=== PATIENT | male | born 1960 | race Caucasian/White ===

== ENCOUNTER 2019-03-14 14:45 | Emergency (ER) | payer SELFPAY ==
[~2019-03-14] VITALS: Ht 167.4 cm; Wt 79.3 kg
[~2019-03-14 14:45] MED LIST: ACHD5005 PO; ALPR.5T; ASPI-84 PO; CEFD300C16; CPR500T PO; ESCI20TA2; ESCT10T; FAMO40TA6 PO; HYDR-34 PO; HYOS0.1216 PO; HYOS0.1283 SL; LORA1TAB; LORA1TAB PO; MECL-124 PO; NAPR-243 PO; ONDA4TAB8 PO; OXYC-12 PO; PHEN200T16 PO; SUCR1ORA5 PO; [UNRECOGNIZED DRUG - OTHER]
[2019-03-14] MEDS ORDERED: NS IV 1000 ML 1,000 ML IV SCH (15:30)
[2019-03-14] MEDS ORDERED: fentaNYL INJECTION 100 MCG/2 ML AMP IVP ONE (15:30)
[2019-03-14] MEDS ORDERED: ONDANSETRON 4 MG/2 ML (SDV) Z0FRAN IVP ONE (15:30)
[2019-03-14] MEDS ORDERED: KETOROLAC 30 MG/ML VIAL IVP ONE (15:30)
--- NOTE | 2019-03-14 15:31 | ED Back Pain ---
General Chief Complaint: Back Problems Stated Complaint: L SIDE KIDNEY PAIN/DIFF URINATING Nursing Triage Note: complaint of left back pain radiating to left abdomen. pt stats unable to sit sill, trouble voiding, hx of kidney stones,. Nursing Sepsis Screen: No Definite Risk Source of Information: Patient Exam Limitations: No Limitations History of Present Illness Date Seen by Provider: Mar 14, 2019 Time Seen by Provider: 15:15 Initial Comments To ER with left lower abdominal pain/left flank pain. Trouble urinating, history of kidney stones, unable to sit still. Has nausea as well. This reminds him of previous kidney stones. Timing/Duration: 4-6 Hours Severity: Moderate Associated Symptoms: denies symptoms Allergies and Home Medications Allergies Coded Allergies: erythromycin base (Unverified Allergy, Mild, ABD PAIN, 08/26/08) ceftriaxone (Verified Allergy, Unknown, 10/26/14) Home Medications Hydrocodone Bit/Acetaminophen 1 Ea Tablet, 2 EA PO Q6H PRN for PAIN, (Reported) Hyoscyamine Sulfate 0.125 Mg Tab.subl, 1-2 TAB SL Q4H Prescribed by: OFE QUACH on 10/27/14129 Lorazepam 1 Mg Tablet, 1 MG PO HS, (Reported) Ondansetron 4 Mg Tab.rapdis, 4 MG PO Q4H Prescribed by: OFE QUACH on 10/27/14129 Sucralfate 1 Gm/10 Ml Oral.susp, 1 GM PO QID AC AND HS Prescribed by: OFE QUACH on 10/27/14129 Patient Home Medication List Home Medication List Reviewed: Yes Review of Systems Constitutional: see HPI EENTM: see HPI Respiratory: no symptoms reported Cardiovascular: no symptoms reported Genitourinary: no symptoms reported Musculoskeletal: no symptoms reported Skin: no symptoms reported Psychiatric/Neurological: No Symptoms Reported Past Gcfdmlr-[id number]-Ntnrsj Hx Patient Social History Recent Foreign Travel: No Contact w/Someone Who Travel: No Recent Infectious Disease Expo: No Physical Abuse: No Sexual Abuse: No Mistreated: No Immunizations Up To Date Tetanus Booster (TDap): Unknown Date of Pneumonia Vaccine: Feb 18, 2008 Date of Influenza Vaccine: Dec 18, 2013 Past Medical History Surgeries: Yes (URETERAL STONE REMOVAL) Gallbladder Respiratory: No Cardiac: No Neurological: Yes Seizure Disorder Reproductive Disorders: No Sexually Transmitted Disease: No HIV/AIDS: No Gastrointestinal: Yes (PANCREATITIS IN THE PAST, CONSTIPATION) Gall Bladder Disease Musculoskeletal: No Endocrine: Yes Diabetes, Non-Insulin dep Loss of Vision: Denies Hearing Impairment: Denies Cancer: No Psychosocial: Yes Anxiety Integumentary: No Blood Disorders: Yes (POLYCYTHEMIA) Physical Exam Vital Signs Vital Signs - First Documented 03/14/19 15:10 Temp 36.2 Pulse 97 Resp 18 B/P (MAP) 156/82 (106) Pulse Ox 94 O2 Delivery Nasal Cannula Capillary Refill : Less Than 3 Seconds Height, Weight, BMI Height: 5'8" Weight: 170lbs. oz. 77.757927is; 28.00 BMI Method:Stated General Appearance: No Apparent Distress, WD/WN Respiratory: No Accessory Muscle Use, No Respiratory Distress Gastrointestinal: Normal Bowel Sounds, Soft, Tenderness Extremity: Normal Capillary Refill, Normal Inspection Neurologic/Psychiatric: Alert, Oriented x3 Skin: Normal Color, Warm/Dry Progress/Results/Core Measures Results/Orders Lab Results Laboratory Tests Test 03/14/19 15:15 03/14/19 15:28 Range/Units White Blood Count 12.7 H 4.3-11.0 10^3/uL Red Blood Count 5.54 4.35-5.85 10^6/uL Hemoglobin 17.2 13.3-17.7 G/DL Hematocrit 50 40-54 % Mean Corpuscular Volume 91 80-99 FL Mean Corpuscular Hemoglobin 31 25-34 PG Mean Corpuscular Hemoglobin Concent 34 32-36 G/DL Red Cell Distribution Width 13.5 10.0-14.5 % Platelet Count 279 130-400 10^3/uL Mean Platelet Volume 9.9 7.4-10.4 FL Neutrophils (%) (Auto) 68 42-75 % Lymphocytes (%) (Auto) 20 12-44 % Monocytes (%) (Auto) 10 0-12 % Eosinophils (%) (Auto) 1 0-10 % Basophils (%) (Auto) 1 0-10 % Neutrophils # (Auto) 8.7 H 1.8-7.8 X 10^3 Lymphocytes # (Auto) 2.5 1.0-4.0 X 10^3 Monocytes # (Auto) 1.3 H 0.0-1.0 X 10^3 Eosinophils # (Auto) 0.2 0.0-0.3 10^3/uL Basophils # (Auto) 0.1 0.0-0.1 10^3/uL Sodium Level 139 135-145 MMOL/L Potassium Level 4.7 3.6-5.0 MMOL/L Chloride Level 107 98-107 MMOL/L Carbon Dioxide Level 20 L 21-32 MMOL/L Anion Gap 12 5-14 MMOL/L Blood Urea Nitrogen 14 7-18 MG/DL Creatinine 1.31 H 0.60-1.30 MG/DL Estimat Glomerular Filtration Rate 57 BUN/Creatinine Ratio 11 Glucose Level 103 70-105 MG/DL Calcium Level 10.4 H 8.5-10.1 MG/DL Corrected Calcium 10.0 8.5-10.1 MG/DL Total Bilirubin 0.5 0.1-1.0 MG/DL Aspartate Amino Transf (AST/SGOT) 19 5-34 U/L Alanine Aminotransferase (ALT/SGPT) 29 0-55 U/L Alkaline Phosphatase 117 40-136 U/L Total Protein 7.1 6.4-8.2 GM/DL Albumin 4.5 3.2-4.5 GM/DL Urine Color YELLOW Urine Clarity SL CLOUDY Urine pH 5.5 5-9 Urine Specific [place] 1.025 H 1.016-1.022 Urine Protein NEGATIVE NEGATIVE Urine Glucose (UA) NEGATIVE NEGATIVE Urine Ketones NEGATIVE NEGATIVE Urine Nitrite NEGATIVE NEGATIVE Urine Bilirubin NEGATIVE NEGATIVE Urine Urobilinogen 0.2 < = 1.0 MG/DL Urine Leukocyte Esterase NEGATIVE NEGATIVE Urine RBC (Auto) 2+ H NEGATIVE Urine RBC 10-25 H /HPF Urine WBC NONE /HPF Urine Squamous Epithelial Cells NONE /HPF Urine Crystals NONE /LPF Urine Amorphous Sediment MOD CUATE URATES H /LPF Urine Bacteria NEGATIVE /HPF Urine Casts NONE /LPF Urine Mucus NEGATIVE /LPF Urine Culture Indicated NO My Orders Orders - QAMAR MARK ADMISSIONS EVALUATOR Cbc With Automated Diff (03/14/19 15:28) Comprehensive Metabolic Panel (03/14/19 15:28) Ua Culture If Indicated (03/14/19 15:28) Ed Iv/Invasive Line Start (03/14/19 15:28) Ct Abd/Pelvis Wo(Kidney Stone) (03/14/19 15:28) Ketorolac Injection (Toradol Injection) (03/14/19 15:30) Ns Iv 1000 Ml (Sodium Chloride 0.9%) (03/14/19 15:30) Fentanyl Injection (Sublimaze Injection (03/14/19 15:30) Ondansetron Injection (Zofran Injectio (03/14/19 15:30) Medications Given in ED Current Medications Medications Dose Ordered Sig/Maureen Route Start Time Stop Time Status Last Admin Dose Admin Fentanyl Citrate 50 mcg ONCE ONCE IVP 03/14/19 15:30 03/14/19 15:31 DC 03/14/19 15:45 50 MCG Ketorolac Tromethamine 15 mg ONCE ONCE IVP 03/14/19 15:30 03/14/19 15:31 DC 03/14/19 15:45 15 MG Ondansetron HCl 4 mg ONCE ONCE IVP 03/14/19 15:30 03/14/19 15:31 DC 03/14/19 15:44 4 MG Vital Signs/I&O 03/14/19 15:10 Temp 36.2 Pulse 97 Resp 18 B/P (MAP) 156/82 (106) Pulse Ox 94 O2 Delivery Nasal Cannula Blood Pressure Mean: 106 Diagnostic Imaging Diagonstic Imaging: CT Comments NAME: [facility] REC#: [id number] PT STATUS: REG ER : 1960 PHYSICIAN: QAMAR MARK APRN ADMIT DATE: 03/14/19/ER Draft Date of Exam:03/14/19 CT ABD/PELVIS WO(KIDNEY STONE) PROCEDURE: CT urinary tract, rule out kidney stone. TECHNIQUE: Multiple contiguous axial images were obtained through the abdomen and pelvis without the use of intravenous contrast. Auto Exposure Controls were utilized during the CT exam to meet ALARA standards for radiation dose reduction. INDICATION: Left flank pain. FINDINGS: The previous CT abdomen/pelvis exam of 10/27/2014 failed to show any sign of an acute abnormality of the abdomen or pelvis. On this exam however there is now partial obstruction of the left collecting system due to a 3.4 mm calculus in the distal left ureter near the ureterovesical junction. There is mild dilatation of the ureter and the left renal pelvis and there is some perinephric stranding about the left kidney. There is a 2 mm nonobstructive calculus in the inferior pole of the right kidney. The right kidney does not appear to be obstructed. There is no acute abnormality of the abdomen and pelvis noted otherwise. There is diverticulosis of the sigmoid and descending colon but there is no sign of acute diverticulitis. The appendix was visualized and is not abnormally thickened. There is no pelvic mass or free fluid collection evident. The urinary bladder and prostate gland are grossly unremarkable. The liver, spleen, pancreas, adrenals, aorta and inferior vena cava show no sign of an acute abnormality. The gallbladder is surgically absent. The stomach is partially filled with particulate matter and consequently difficult to assess. The lung bases are clear. The bone windows show no sign of a fracture or of a destructive lesion. IMPRESSION: 1. There is partial obstruction of the left collecting system due to a 3.6 mm calculus in the left ureter near the ureterovesical junction. There is also a minute nonobstructive calculus within the right kidney. 2. There is no acute abnormality of the abdomen and pelvis noted otherwise. Dictated on workstation # [id number] Dict: 03/14/19 1620 Trans: 03/14/[address] [facility] [id number] Interpreted by: PETE ACEVEDO MD Electronically signed by: Departure Impression Primary Impression: Left ureteral stone Disposition: HOME, SELF-CARE Condition: Improved Departure-Patient Inst. Decision time for Depature: 16:34 Referrals: EUGENE BECKETT MD (PCP/Family) Primary Care Physician Patient Instructions: Kidney Stones (DC) Add. Discharge Instructions: 1. Follow-up with your regular doctor next week 2. Pain medication and nausea medication as needed. All discharge instructions reviewed with patient and/or family. Voiced understanding. Scripts Sulfamethoxazole/Trimethoprim (Bactrim Ds Tablet) 1 Each Tablet 1 EACH PO BID, #10 TAB Prov: QAMAR MARK APRN 03/14/19 Ondansetron (Ondansetron Odt) 4 Mg Tab.rapdis 4 MG PO Q4H PRN for NAUSEA/VOMITING, #10 TAB Prov: QAMAR MARK APRN 03/14/19 Hydrocodone Bit/Acetaminophen (Hydrocodone/Acetaminophen 5/325mg Tablet) 1 Tab Tab 1-2 EACH PO Q6H PRN for PAIN-MODERATE MDD 10 for 3 Days, #30 TAB 0 Refills Prov: QAMAR MARK APRN 03/14/19 QAMAR MARK APRN Mar 14, 2019 15:31
[2019-03-14 15:34] LABS: BASOPHILS # (AUTO) 0.1 10^3/uL (0.0-0.1); BASOPHILS % (AUTO) 1 % (0-10); EOSINOPHILS # (AUTO) 0.2 10^3/uL (0.0-0.3); EOSINOPHILS % (AUTO) 1 % (0-10); HEMATOCRIT 50 % (40-54); HEMOGLOBIN 17.2 G/DL (13.3-17.7); LYMPHOCYTES # (AUTO) 2.5 X 10^3 (1.0-4.0); LYMPHOCYTES % (AUTO) 20 % (12-44); MEAN CORPUSCULAR HEMOGLOBIN 31 PG (25-34); MEAN CORPUSCULAR HGB CONC 34 G/DL (32-36); MEAN CORPUSCULAR VOLUME 91 FL (80-99); MEAN PLATELET VOLUME 9.9 FL (7.4-10.4); MONOCYTES # (AUTO) 1.3 X 10^3 (0.0-1.0); MONOCYTES % (AUTO) 10 % (0-12); NEUTROPHILS # (AUTO) 8.7 X 10^3 (1.8-7.8); NEUTROPHILS % (AUTO) 68 % (42-75); PLATELET COUNT 279 10^3/uL (130-400); RED CELL DISTRIBUTION WIDTH 13.5 % (10.0-14.5); WHITE BLOOD COUNT 12.7 10^3/uL (4.3-11.0)
[2019-03-14 15:35] LABS: BILIRUBIN,URINE NEGATIVE (NEGATIVE); CLARITY,URINE SL CLOUDY; COLOR,URINE YELLOW; GLUCOSE, URINE (UA) NEGATIVE (NEGATIVE); KETONES,URINE NEGATIVE (NEGATIVE); LEUKOCYTE ESTERASE ,URINE NEGATIVE (NEGATIVE); NITRITE,URINE NEGATIVE (NEGATIVE); PH,URINE 5.5 (5-9); PROTEIN,URINE NEGATIVE (NEGATIVE)
[2019-03-14 15:45] LABS: ALBUMIN 4.5 GM/DL (3.2-4.5); BILIRUBIN,TOTAL 0.5 MG/DL (0.1-1.0); CALCIUM 10.4 MG/DL (8.5-10.1); CREATININE SERUM 1.31 MG/DL (0.60-1.30); POTASSIUM 4.7 MMOL/L (3.6-5.0); TOTAL PROTEIN 7.1 GM/DL (6.4-8.2)
[2019-03-14 15:54] LABS: AMORPHOUS SEDIMENT,UR MOD AMOR URATES /LPF; BACTERIA,URINE NEGATIVE /HPF
--- NOTE | 2019-03-14 16:29 | Diagnostic Imaging Report ---
PROCEDURE: CT urinary tract, rule out kidney stone. TECHNIQUE: Multiple contiguous axial images were obtained through the abdomen and pelvis without the use of intravenous contrast. Auto Exposure Controls were utilized during the CT exam to meet ALARA standards for radiation dose reduction. INDICATION: Left flank pain. FINDINGS: The previous CT abdomen/pelvis exam of 10/27/2014 failed to show any sign of an acute abnormality of the abdomen or pelvis. On this exam however there is now partial obstruction of the left collecting system due to a 3.4 mm calculus in the distal left ureter near the ureterovesical junction. There is mild dilatation of the ureter and the left renal pelvis and there is some perinephric stranding about the left kidney. There is a 2 mm nonobstructive calculus in the inferior pole of the right kidney. The right kidney does not appear to be obstructed. There is no acute abnormality of the abdomen and pelvis noted otherwise. There is diverticulosis of the sigmoid and descending colon but there is no sign of acute diverticulitis. The appendix was visualized and is not abnormally thickened. There is no pelvic mass or free fluid collection evident. The urinary bladder and prostate gland are grossly unremarkable. The liver, spleen, pancreas, adrenals, aorta and inferior vena cava show no sign of an acute abnormality. The gallbladder is surgically absent. The stomach is partially filled with particulate matter and consequently difficult to assess. The lung bases are clear. The bone windows show no sign of a fracture or of a destructive lesion. IMPRESSION: 1. There is partial obstruction of the left collecting system due to a 3.6 mm calculus in the left ureter near the ureterovesical junction. There is also a minute nonobstructive calculus within the right kidney. 2. There is no acute abnormality of the abdomen and pelvis noted otherwise. Dictated by: Dictated on workstation # [id number]
[2019-03-14] MEDS ORDERED: ONDA4TAB11 PO (16:37)
[2019-03-14] MEDS ORDERED: SULF1TAB35 PO (16:37)
[2019-03-14] MEDS ORDERED: ACHD5005 PO (16:37)
[2019-03-14] MEDS ORDERED: HYDROcodone/APAP 5 MG/325 MG (LORTAB) TAB PO ONE (16:45)
[2019-03-14 16:53] VITALS: BP 148/80
== END 2019-03-14 16:53 | disposition home or self-care (01) ==
LOC: EDUNIT# 14:45 → ER 14:46
DX: N20.1 Calculus of ureter (principal); G40.909 Epilepsy, unspecified, not intractable, without status epilepticus; E11.9 Type 2 diabetes mellitus without complications; F41.9 Anxiety disorder, unspecified; Z88.1 Allergy status to other antibiotic agents
CPT/HCPCS: 36415; 74176; 80053; 81000; 85025

== ENCOUNTER 2019-03-16 13:32 | Emergency (ER) | payer SELFPAY ==
[~2019-03-16] VITALS: Ht 157.4 cm; Wt 77.2 kg
[~2019-03-16 13:32] MED LIST changes: +ONDA4TAB11 PO; +SULF1TAB35 PO
[2019-03-16] MEDS ORDERED: LACTATED RINGERS 1,000 ML IV ONE ×2 (13:41→15:19)
[2019-03-16] MEDS ORDERED: KETOROLAC 30 MG/ML VIAL IVP STA (13:41)
[2019-03-16] MEDS ORDERED: fentaNYL INJECTION 100 MCG/2 ML AMP IVP STA (13:41)
[2019-03-16 13:57] LABS: BASOPHILS % (AUTO) 0 % (0-10); EOSINOPHILS # (AUTO) 0.1 10^3/uL (0.0-0.3); EOSINOPHILS % (AUTO) 1 % (0-10); HEMATOCRIT 44 % (40-54); HEMOGLOBIN 15.1 G/DL (13.3-17.7); LYMPHOCYTES # (AUTO) 1.2 X 10^3 (1.0-4.0); LYMPHOCYTES % (AUTO) 8 % (12-44); MEAN CORPUSCULAR HEMOGLOBIN 31 PG (25-34); MEAN CORPUSCULAR HGB CONC 34 G/DL (32-36); MEAN CORPUSCULAR VOLUME 91 FL (80-99); MONOCYTES # (AUTO) 1.7 X 10^3 (0.0-1.0); MONOCYTES % (AUTO) 11 % (0-12); NEUTROPHILS # (AUTO) 12.4 X 10^3 (1.8-7.8); NEUTROPHILS % (AUTO) 81 % (42-75); PLATELET COUNT 205 10^3/uL (130-400); RED CELL DISTRIBUTION WIDTH 13.3 % (10.0-14.5); WHITE BLOOD COUNT 15.4 10^3/uL (4.3-11.0)
--- NOTE | 2019-03-16 14:15 | NUR ---
This nurse noticed pt shaking and appearing very anxious. This nurse asked pt if pt has anxiety. Pt reported taking ativan for seizure disorder, but stopped taking med cold turkey on Friday. Pt also reports severe headache, and insomnia. Dr. Weiss notified.
[2019-03-16 14:22] LABS: BAND NEUTROPHILS 2 %; BASOPHILS % (MANUAL) 0 %; EOSINOPHILS % (MANUAL) 0 %; LYMPHOCYTES % (MANUAL) 8 %; MONOCYTES % (MANUAL) 11 %; NEUTROPHILS % (MANUAL) 79 %
--- NOTE | 2019-03-16 14:22 | ED GU-Male ---
General Chief Complaint: Abdominal/GI Problems Stated Complaint: DX W/KIDNEY STONE,NOT GETTING BETTER Nursing Triage Note: AMB TO ED REPORTS THAT WAS SEEN IN ED ON FRIDAY DX WITH KIDNEY STONEY. PAIN ON L SIDE HAS PMH OF HAVING KIDNEY STONES. PAIN WORSE Source: patient Exam Limitations: no limitations History of Present Illness Date Seen by Provider: Mar 16, 2019 Time Seen by Provider: 13:43 Initial Comments Here with report of increasing pain since Friday. He had had pain for 2 days at that point and was found on Friday to have the left ureteral stone at the UVJ. He has been taking a hydrocodone but that's cause some constipation. He did take ibuprofen but only took 200 mg today because he was worried about a heart condition as listed on the bottle. He has not taken any hydrocodone today because he woke up in significant pain and he knew he was going to go to the emergency department. Reports that he shaking and his belly hurts on the left side but is different than a kidney stone pain. Has a history of constipation. He did take 2 Dulcolax a few hours ago and the pain worsened. Later, patient revealed that he abruptly stopped taking his lorazepam on Friday when the pharmacist told him that there could be mixed problems with the hydrocodone in it. Stop his heart. He has been taking that for 18 years. He started shaking today and did not realize that there could be withdrawal with abruptly stopping. Also states that his anxiety is much worse and he has been more tense. Timing/Duration: getting worse Severity/Quality: moderate, severe, aching, sharp Location: LLQ, left flank Radiation: none Activities at Onset: none Modifying Factors: Improves With Other (no aggravating or relieving factors) Associated Symptoms: abdominal pain; No dysuria, No fever/chills, No nausea/vomiting, No urinary frequency Allergies and Home Medications Allergies Coded Allergies: erythromycin base (Unverified Allergy, Mild, ABD PAIN, 08/26/08) ceftriaxone (Verified Allergy, Unknown, 10/26/14) Home Medications Hydrocodone Bit/Acetaminophen 1 Ea Tablet, 2 EA PO Q6H PRN for PAIN, (Reported) Hydrocodone Bit/Acetaminophen 1 Tab Tab, 1-2 EACH PO Q6H PRN for PAIN-MODERATE Prescribed by: QAMAR MARK on 03/14/19 9204 Hyoscyamine Sulfate 0.125 Mg Tab.subl, 1-2 TAB SL Q4H Prescribed by: OFE QUACH on 10/27/14129 Lorazepam 1 Mg Tablet, 1 MG PO HS, (Reported) Ondansetron 4 Mg Tab.rapdis, 4 MG PO Q4H Prescribed by: OFE QUACH on 10/27/14129 Ondansetron 4 Mg Tab.rapdis, 4 MG PO Q4H PRN for NAUSEA/VOMITING Prescribed by: QAMAR MARK on 03/14/19 163 Sucralfate 1 Gm/10 Ml Oral.susp, 1 GM PO QID AC AND HS Prescribed by: OFE QUACH on 10/27/14129 Sulfamethoxazole/Trimethoprim 1 Each Tablet, 1 EACH PO BID Prescribed by: QAMAR MARK on 03/14/191636 Patient Home Medication List Home Medication List Reviewed: Yes Review of Systems Review of Systems Constitutional: see HPI; No chills, No fever EENTM: no symptoms reported Respiratory: no symptoms reported Cardiovascular: no symptoms reported Gastrointestinal: abdominal pain; No diarrhea; vomiting Genitourinary: flank pain, pain Musculoskeletal: no symptoms reported Skin: no symptoms reported Psychiatric/Neurological: See HPI, Anxiety; Denies Weakness Endocrine: No Symptoms Reported All Other Systemes Reviewed Negative Unless Noted: Yes Past Eyuivgk-Lnkdmm-Njgrpf Hx Past Med/Social Hx: Reviewed Nursing Past Med/Soc Hx Patient Social History Alcohol Use: Denies Use Recreational Drug Use: Yes (SMOKES 1 / PPD) Smoking Status: Current Everyday Smoker Recent Foreign Travel: No Contact w/Someone Who Travel: No Recent Infectious Disease Expo: No Immunizations Up To Date Tetanus Booster (TDap): Unknown Date of Pneumonia Vaccine: Feb 18, 2008 Date of Influenza Vaccine: Dec 18, 2013 Past Medical History Surgeries: Yes (URETERAL STONE REMOVAL) Gallbladder Respiratory: No Cardiac: No Neurological: Yes Seizure Disorder Reproductive Disorders: No Sexually Transmitted Disease: No HIV/AIDS: No Gastrointestinal: Yes (PANCREATITIS IN THE PAST, CONSTIPATION) Gall Bladder Disease Musculoskeletal: No Endocrine: Yes Diabetes, Non-Insulin dep Loss of Vision: Denies Hearing Impairment: Denies Cancer: No Psychosocial: Yes Anxiety Integumentary: No Blood Disorders: Yes (POLYCYTHEMIA) Family Medical History Reviewed Nursing Family Hx Physical Exam Vital Signs Vital Signs - First Documented 03/16/19 13:34 Temp 36.6 Pulse 98 Resp 18 B/P (MAP) 152/82 (105) Pulse Ox 97 O2 Delivery Room Air Capillary Refill : Less Than 3 Seconds Height, Weight, BMI Height: 5'8" Weight: 170lbs. oz. 77.876206gj; 31.00 BMI Method:Stated General Appearance: WD/WN, no apparent distress HEENT: PERRL/EOMI, pharynx normal Neck: full range of motion, supple Cardiovascular: regular rate, rhythm, no murmur Respiratory: lungs clear, normal breath sounds Gastrointestinal: soft, tenderness (left flank area) Back: normal inspection, no CVA tenderness, no vertebral tenderness Extremities: non-tender, normal inspection Neurologic/Psychiatric: alert, oriented x 3 Skin: normal color, warm/dry Progress/Results/Core Measures Suspected Sepsis Recent Fever Within 48 Hours: No Infection Criteria Present: None New/Unexplained Altered Menta: No Sepsis Screen: No Definite Risk SIRS Temperature: Pulse: 98 Respiratory Rate: 18 Laboratory Tests 03/16/19 13:45: White Blood Count 15.4H Blood Pressure 152 /82 Mean: 105 Laboratory Tests 03/16/19 13:45: Creatinine 2.00H, Platelet Count 205, Total Bilirubin 1.0 Results/Orders Lab Results Laboratory Tests Test 03/16/19 13:45 03/16/19 14:46 Range/Units White Blood Count 15.4 H 4.3-11.0 10^3/uL Red Blood Count 4.86 4.35-5.85 10^6/uL Hemoglobin 15.1 13.3-17.7 G/DL Hematocrit 44 40-54 % Mean Corpuscular Volume 91 80-99 FL Mean Corpuscular Hemoglobin 31 25-34 PG Mean Corpuscular Hemoglobin Concent 34 32-36 G/DL Red Cell Distribution Width 13.3 10.0-14.5 % Platelet Count 205 130-400 10^3/uL Mean Platelet Volume 10.0 7.4-10.4 FL Neutrophils (%) (Auto) 81 H 42-75 % Lymphocytes (%) (Auto) 8 L 12-44 % Monocytes (%) (Auto) 11 0-12 % Eosinophils (%) (Auto) 1 0-10 % Basophils (%) (Auto) 0 0-10 % Neutrophils # (Auto) 12.4 H 1.8-7.8 X 10^3 Lymphocytes # (Auto) 1.2 1.0-4.0 X 10^3 Monocytes # (Auto) 1.7 H 0.0-1.0 X 10^3 Eosinophils # (Auto) 0.1 0.0-0.3 10^3/uL Basophils # (Auto) 0.0 0.0-0.1 10^3/uL Neutrophils % (Manual) 79 % Lymphocytes % (Manual) 8 % Monocytes % (Manual) 11 % Eosinophils % (Manual) 0 % Basophils % (Manual) 0 % Band Neutrophils 2 % Blood Morphology Comment NORMAL Sodium Level 135 135-145 MMOL/L Potassium Level 4.6 3.6-5.0 MMOL/L Chloride Level 107 98-107 MMOL/L Carbon Dioxide Level 17 L 21-32 MMOL/L Anion Gap 11 5-14 MMOL/L Blood Urea Nitrogen 19 H 7-18 MG/DL Creatinine 2.00 H 0.60-1.30 MG/DL Estimat Glomerular Filtration Rate 35 BUN/Creatinine Ratio 10 Glucose Level 116 H 70-105 MG/DL Calcium Level 9.1 8.5-10.1 MG/DL Corrected Calcium 8.9 8.5-10.1 MG/DL Total Bilirubin 1.0 0.1-1.0 MG/DL Aspartate Amino Transf (AST/SGOT) 33 5-34 U/L Alanine Aminotransferase (ALT/SGPT) 40 0-55 U/L Alkaline Phosphatase 109 40-136 U/L C-Reactive Protein High Sensitivity 12.13 H 0.00-0.50 MG/DL Total Protein 7.0 6.4-8.2 GM/DL Albumin 4.2 3.2-4.5 GM/DL Urine Color YELLOW Urine Clarity CLEAR Urine pH 5.5 5-9 Urine Specific [place] 1.025 H 1.016-1.022 Urine Protein NEGATIVE NEGATIVE Urine Glucose (UA) NEGATIVE NEGATIVE Urine Ketones TRACE H NEGATIVE Urine Nitrite NEGATIVE NEGATIVE Urine Bilirubin NEGATIVE NEGATIVE Urine Urobilinogen 0.2 < = 1.0 MG/DL Urine Leukocyte Esterase NEGATIVE NEGATIVE Urine RBC (Auto) 3+ H NEGATIVE Urine RBC 2-5 H /HPF Urine WBC NONE /HPF Urine Crystals NONE /LPF Urine Bacteria NEGATIVE /HPF Urine Casts NONE /LPF Urine Mucus NEGATIVE /LPF Urine Culture Indicated NO My Orders Orders - SAMANTHA QUACH MD Cbc With Automated Diff (03/16/19 13:41) Comprehensive Metabolic Panel (03/16/19 13:41) Hs C Reactive Protein (03/16/19 13:41) Ua Culture If Indicated (03/16/19 13:41) Ed Iv/Invasive Line Start (03/16/19 13:41) Lactated Ringers (Lr 1000 Ml Iv Solution (03/16/19 13:41) Abdomen/Kub 1view (03/16/19 13:41) Fentanyl Injection (Sublimaze Injection (03/16/19 13:41) Ketorolac Injection (Toradol Injection) (03/16/19 13:41) Manual Differential (03/16/19 13:45) Lorazepam Injection (Ativan Injection) (03/16/19 14:30) Ed Iv/Invasive Line Start (03/16/19 15:19) Lactated Ringers (Lr 1000 Ml Iv Solution (03/16/19 15:19) Medications Given in ED Current Medications Medications Dose Ordered Sig/Maureen Route Start Time Stop Time Status Last Admin Dose Admin Lactated Ringer's 1,000 ml @ 0 mls/hr Q0M ONCE IV 03/16/19 13:41 03/16/19 13:44 DC 03/16/19 14:10 1,000 MLS/HR Lactated Ringer's 1,000 ml @ 0 mls/hr Q0M ONCE IV 03/16/19 15:19 03/16/19 15:20 DC 03/16/19 15:44 1,000 MLS/HR Lorazepam 0.5 mg ONCE ONCE IVP 03/16/19 14:30 03/16/19 14:31 DC 03/16/19 14:24 0.5 MG Vital Signs/I&O 03/16/19 13:34 Temp 36.6 Pulse 98 Resp 18 B/P (MAP) 152/82 (105) Pulse Ox 97 O2 Delivery Room Air Capillary Refill : Less Than 3 Seconds Blood Pressure Mean: 105 Progress Note : Progress Note Seen and evaluated. IV, labs, UA, KUB, LR 1 L bolus, fentanyl 75 g IV and Toradol 30 mg IV ordered. Labs finding out about the abrupt stopping of lo razepam, Ativan 0.5 mg IV ordered. Monitor patient. 1520: Overall feeling much better. Creatinine is elevated today. He does admit that he was nauseated and did not drink well yesterday although has drink better today. I do believe he is dehydrated and we will give another liter of LR. We did discuss at length therapy at home and he would like to try this at home to see if he can get better. I think this is a reasonable approach as long as he can tolerate by mouth fluids. He believes he can. Monitor patient. 1622: Overall much better. Discharged home with return precautions. Patient verbalize understanding instructions and agreement with plan. Diagnostic Imaging Diagonstic Imaging: Xray Plain Films/CT/US/NM/MRI: abdomen Comments [facility]. [place], [place] NAME: [facility] REC#: [id number] PT STATUS: REG ER : 1960 PHYSICIAN: SAMANTHA QUACH MD ADMIT DATE: 03/16/19/ER Draft Date of Exam:03/16/19 ABDOMEN/KUB 1VIEW EXAMINATION: Supine abdomen at 2:39 p.m. INDICATION: Nephrolithiasis. FINDINGS: The recent CT abdomen/pelvis exam of 03/14/2019 noted partial obstruction of the left collecting system due to a 3.6 mm calculus at the ureterovesical junction on the left. On this exam, that calculus is again evident and does not appear to have changed significantly in position. The minute nonobstructive calculus within the inferior pole of the right kidney seen on the previous exam is not well visualized. No other pathological calcification is evident. There do appear to be ingested medication tablets overlying the right upper quadrant. IMPRESSION: The obstructive calculus involving the distal left ureter seen on the recent CT abdomen/pelvis exam is again evident and seems similar in position. Dictated on workstation # [id number] Dict: 03/16/19 1441 Trans: 03/16/19 1448 [id number] Interpreted by: PETE ACEVEDO MD Electronically signed by: Departure Impression Primary Impression: Left ureteral stone Additional Impressions: Dehydration Benzodiazepine withdrawal Qualified Codes: F13.230 - Sedative, hypnotic or anxiolytic dependence with withdrawal, uncomplicated Renal insufficiency, mild Disposition: HOME, SELF-CARE Condition: Improved Departure-Patient Inst. Decision time for Depature: 15:22 Referrals: EUGENE BECKETT MD (PCP/Family) Primary Care Physician Patient Instructions: Dehydration, Adult (DC), Kidney Stones (DC) Add. Discharge Instructions: All discharge instructions reviewed with patient and/or family. Voiced understanding. You may continue your lorazepam daily. You may take MiraLAX or the generic one half to one capful twice daily to keep stools soft. You may increase or decrease the dose as needed. You may take ibuprofen 400-600 mg every 8 hours as needed for pain. You may take the pain medicines as directed. Ensure that you're drinking plenty of fluids. Return for worse pain, persistent nausea or vomiting, not able to drink fluids, weakness or other concerns as needed. SAMANTHA QUACH MD Mar 16, 2019 14:22
[2019-03-16 14:23] LABS: ALBUMIN 4.2 GM/DL (3.2-4.5); CALCIUM 9.1 MG/DL (8.5-10.1); POTASSIUM 4.6 MMOL/L (3.6-5.0); RBC MORPH NORMAL
[2019-03-16] MEDS ORDERED: LORazepam INJ 2 MG/ML (ATIVAN) VIAL IVP ONE (14:30)
--- NOTE | 2019-03-16 14:49 | Diagnostic Imaging Report ---
EXAMINATION: Supine abdomen at 2:39 p.m. INDICATION: Nephrolithiasis. FINDINGS: The recent CT abdomen/pelvis exam of 03/14/2019 noted partial obstruction of the left collecting system due to a 3.6 mm calculus at the ureterovesical junction on the left. On this exam, that calculus is again evident and does not appear to have changed significantly in position. The minute nonobstructive calculus within the inferior pole of the right kidney seen on the previous exam is not well visualized. No other pathological calcification is evident. There do appear to be ingested medication tablets overlying the right upper quadrant. IMPRESSION: The obstructive calculus involving the distal left ureter seen on the recent CT abdomen/pelvis exam is again evident and seems similar in position. Dictated by: Dictated on workstation # [id number]
[2019-03-16 14:53] LABS: BILIRUBIN,URINE NEGATIVE (NEGATIVE); CLARITY,URINE CLEAR; COLOR,URINE YELLOW; GLUCOSE, URINE (UA) NEGATIVE (NEGATIVE); KETONES,URINE TRACE (NEGATIVE); LEUKOCYTE ESTERASE ,URINE NEGATIVE (NEGATIVE); NITRITE,URINE NEGATIVE (NEGATIVE); PH,URINE 5.5 (5-9); PROTEIN,URINE NEGATIVE (NEGATIVE)
[2019-03-16 14:59] LABS: BACTERIA,URINE NEGATIVE /HPF
--- NOTE | 2019-03-16 15:03 | NUR ---
Pt appears much calmer at this time,and reports feeling much better. Dr. Weiss notified.
[2019-03-16 16:37] VITALS: BP 103/56
== END 2019-03-16 16:37 | disposition home or self-care (01) ==
LOC: EDUNIT# 13:32 → ER 13:33
DX: N20.1 Calculus of ureter (principal); E86.0 Dehydration; F13.239 Sedative, hypnotic or anxiolytic dependence with withdrawal, unspecified; E11.9 Type 2 diabetes mellitus without complications; G43.909 Migraine, unspecified, not intractable, without status migrainosus; F41.9 Anxiety disorder, unspecified; F17.210 Nicotine dependence, cigarettes, uncomplicated; Z88.1 Allergy status to other antibiotic agents
CPT/HCPCS: 36415; 74018; 80053; 81000; 85007; 85027; 86141

== ENCOUNTER 2020-11-08 15:31 | Emergency (ER) | payer SELFPAY ==
[~2020-11-08] VITALS: Ht 172 cm; Wt 81.0 kg
[~2020-11-08 15:31] MED LIST changes: -SULF1TAB35 PO; +SULF1TAB38 PO
[2020-11-08 16:05] LABS: ALBUMIN 4.4 GM/DL (3.2-4.5); CHLORIDE 107 MMOL/L (98-107); POTASSIUM 4.1 MMOL/L (3.6-5.0); SODIUM 139 MMOL/L (135-145)
--- NOTE | 2020-11-08 16:05 | Diagnostic Imaging Report ---
INDICATION: Neurologic deficit, found down, difficulty speaking, and left eye pain. TECHNIQUE: Multiple contiguous axial images were obtained through the brain without the use of intravenous contrast. Auto Exposure Controls were utilized during the CT exam to meet ALARA standards for radiation dose reduction. COMPARISON: Comparison made with 08/12/2013. FINDINGS: There were no extra-axial fluid collections. No intracranial hemorrhage. No intracranial mass or mass effect. No midline shift. The ventricles are normal in size and position. There were no focal parenchymal abnormalities in the brain. Calvarial windows appear unremarkable. There is some mild mucosal thickening in the right sphenoid sinus. IMPRESSION: No acute intracranial abnormality. Dictated by: Dictated on workstation # [id number]
[2020-11-08 16:06] LABS: CALCIUM 9.4 MG/DL (8.5-10.1)
[2020-11-08 16:07] LABS: GLUCOSE 121 MG/DL (70-105)
[2020-11-08 16:08] LABS: BASOPHILS # (AUTO) 0.1 10^3/uL (0.0-0.1); BASOPHILS % (AUTO) 1 % (0-10); CARBON DIOXIDE 23 MMOL/L (21-32); EOSINOPHILS # (AUTO) 0.2 10^3/uL (0.0-0.3); EOSINOPHILS % (AUTO) 1 % (0-10); HEMATOCRIT 51 % (40-54); HEMOGLOBIN 17.8 g/dL (13.3-17.7); LYMPHOCYTES # (AUTO) 3.1 10^3/uL (1.0-4.0); LYMPHOCYTES % (AUTO) 27 % (12-44); MEAN CORPUSCULAR HEMOGLOBIN 31 pg (25-34); MEAN CORPUSCULAR HGB CONC 35 g/dL (32-36); MEAN CORPUSCULAR VOLUME 90 fL (80-99); MEAN PLATELET VOLUME 9.4 fL (9.0-12.2); MONOCYTES # (AUTO) 0.9 10^3/uL (0.0-1.0); MONOCYTES % (AUTO) 8 % (0-12); NEUTROPHILS # (AUTO) 7.2 10^3/uL (1.8-7.8); NEUTROPHILS % (AUTO) 63 % (42-75); PLATELET COUNT 290 10^3/uL (130-400); WHITE BLOOD COUNT 11.5 10^3/uL (4.3-11.0)
[2020-11-08 16:09] LABS: BILIRUBIN,TOTAL 0.6 MG/DL (0.1-1.0)
[2020-11-08 16:11] LABS: ALKALINE PHOSPHATASE 128 U/L (40-136); CREATININE SERUM 1.09 MG/DL (0.60-1.30); GFR ESTIMATED 70
[2020-11-08] MEDS: LACTATED RINGERS 1,000 ML IV ONE ×2 (16:11→18:13)
[2020-11-08 16:12] LABS: BUN/CREATININE RATIO 12
[2020-11-08 16:14] LABS: ALANINE AMINOTRANSFERASE 24 U/L (0-55); CREATINE KINASE 105 U/L (30-200); MAGNESIUM 2.2 MG/DL (1.6-2.4)
[2020-11-08 16:22] LABS: CREATINE KINASE MB 1.1 NG/ML (<6.6)
--- NOTE | 2020-11-08 16:24 | Diagnostic Imaging Report ---
EXAMINATION: Chest 1 view HISTORY: Weakness COMPARISON: 12/19/2014 FINDINGS: The lungs are clear without edema or pneumonia. No pleural effusion or pneumothorax. Heart size is normal. IMPRESSION: 1. Clear lungs. Dictated by: Dictated on workstation # [id number]
[2020-11-08 16:31] LABS: FIBRIN DEGRADATION PRODUCTS 0.3 UG/ML (0.00-0.49); PROTHROMBIN TIME PATIENT 13.2 SEC (12.2-14.7)
[2020-11-08 16:34] LABS: TSH (THYROID ANALYZER) 0.52 UIU/ML (0.35-4.94)
[2020-11-08] MEDS: fentaNYL INJ 100 MCG/2 ML AMP IVP STA (16:40)
--- NOTE | 2020-11-08 16:44 | ED General ---
General Chief Complaint: Dizziness/Syncope Stated Complaint: DIZZINESS, LATHARGIC Nursing Triage Note: Patient hao via EMS ALS, [facility]. Patient has 20g in left AC with 300ml of NS infused upon arrival. Patient was found at place of employement sitting on the bathroom floor. Patient was given Zofran 4mg during transport for nausea. Patient c/o left eye and head pain that started around 1400. 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 PT STATES AROUND 1430, HE WAS OUTSIDE , GOT OUT OF HIS TRUCK AND BEGAN TO FEEL VERY DIZZY, FELT VERY WEAK AND LETHARGIC, BROKE OUT IN A SWEAT, GOT NAUSEATED AND HAD POUNDING HEADACHE AROUND LEFT EYE NO SYNCOPE OR SEIZURE STATES HIS VISION WAS DOUBLE BRIEFLY, BUT IS NOT NOW WAS NAUSEATED, EMS GAVE ZOFRAN 4 MG AND NAUSEA IS RESOLVED ON ARRIVAL NO CHEST PAIN NO PALPITATIONS NO SHORTNESS OF BREATH NO PARESTHESIAS OR MOTOR DEFICITS NO ABDOMINAL PAIN NO VOMITING OR DIARRHEA NO INCONTINENCE NO URINARY SYMPTOMS NO FEVER OR RECENT ILLNESS NO COUGH/CONGESTION, BUT HAS BEEN HAVING "SINUS PROBLEMS" SINCE April HE WAS RECENTLY SEEN AT DR. BECKETT'S AND FOUND FLUID ON THE EARS. PT HAS RECEIVED DWAINE AND [employer] COVID-19 VACCINE EARLIER THIS YEAR. NO KNOWN SICK CONTACTS NO HISTORY OF SIMILAR STATES HE WAS NOT OUT IN THE HEAT AND DID NOT DO ANY UNUSUAL ACTIVITIES. PCP: DR. BECKETT Allergies and Home Medications Allergies Coded Allergies: erythromycin base (Unverified Allergy, Mild, ABD PAIN, 08/26/08) ceftriaxone (Verified Allergy, Unknown, 10/26/14) Patient Home Medication List Home Medication List Reviewed: Yes Hydrocodone Bit/Acetaminophen (Lortab 7.5 Mg Tablet) 1 Ea Tablet, 2 EA PO Q6H PRN for PAIN, (Reported) Entered as Reported by: NADER RAMIREZ on 05/12/14 1029 Hydrocodone Bit/Acetaminophen (Lortab 5 Mg Tablet) 1 Tab Tab, 1-2 EACH PO Q6H PRN for PAIN-MODERATE Prescribed by: QAMAR MARK on 03/14/19 1637 Hyoscyamine Sulfate (Levsin-Sl) 0.125 Mg Tab.subl, 1-2 TAB SL Q4H Prescribed by: OFE QUACH on 10/27/14129 Lorazepam (Ativan) 1 Mg Tablet, 1 MG PO HS, (Reported) Entered as Reported by: LIU NAVA on 09/12/112014 Ondansetron (Zofran Odt) 4 Mg Tab.rapdis, 4 MG PO Q4H Prescribed by: OFE QUACH on 10/27/14129 Ondansetron (Ondansetron Odt) 4 Mg Tab.rapdis, 4 MG PO Q4H PRN for NAUSEA/VOMITING Prescribed by: QAMAR MARK on 03/14/19 1637 Ondansetron (Ondansetron Odt) 4 Mg Tab.rapdis, 4 MG PO Q4H Prescribed by: OFE QUACH on 11/08/20 184 Sucralfate (Carafate) 1 Gm/10 Ml Oral.susp, 1 GM PO QID AC AND HS Prescribed by: OFE QUACH on 10/27/14129 Sulfamethoxazole/Trimethoprim (Bactrim Ds Tablet) 1 Each Tablet, 1 EACH PO BID Prescribed by: QAMAR MARK on 03/14/19 1637 Triamterene/Hydrochlorothiazid (Maxzide 37.5 mg-25 mg Tablet) 1 Each Tablet, 0.5 EACH PO DAILY Prescribed by: OFE QUACH on 11/08/20 184 Review of Systems Review of Systems Constitutional: see HPI; No chills; diaphoresis, dizziness; No fever; malaise, weakness EENTM: see HPI, double vision Respiratory: no symptoms reported; No cough, No short of breath Cardiovascular: no symptoms reported; No chest pain, No edema, No palpitations, No syncope Gastrointestinal: see HPI; No abdominal pain, No diarrhea; nausea; No vomiting Genitourinary: no symptoms reported; No incontinence Musculoskeletal: no symptoms reported Skin: no symptoms reported Psychiatric/Neurological: See HPI, Headache; Denies Numbness, Denies Paresthesia, Denies Seizure, Denies Tingling, Denies Tremors, Denies Weakness Hematologic/Lymphatic: No Symptoms Reported Immunological/Allergic: no symptoms reported Past Bmmsykx-Viwonl-Ldmhxf Hx Patient Social History Tobacco Use?: Yes (1 PPD) Tobacco type used: Cigarettes Smoking Status: Current Everyday Smoker Substance use?: No Alcohol Use?: Yes Alcohol type: Beer Alcohol Frequency: Once in a while Pt feels they are or have been: No Immunizations Up To Date Tetanus Booster (TDap): Unknown First/Initial COVID19 Vaccinat: 04/2020 COVID19 Vaccine 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: [place] Past Medical History Surgery/Hospitalization HX: CHOLECYSTECTOMY Surgeries: Yes (URETERAL STONE REMOVAL) Gallbladder, Renal Respiratory: No Cardiac: Yes High Cholesterol Neurological: Yes Seizure Disorder Reproductive Disorders: No Sexually Transmitted Disease: No HIV/AIDS: No Genitourinary: No Gastrointestinal: Yes (PANCREATITIS IN THE PAST, CONSTIPATION) Chronic Constipation, Pancreatitis, Gall Bladder Disease Musculoskeletal: No Endocrine: Yes (NO MEDICATIONS) Diabetes, Non-Insulin dep HEENT: No Loss of Vision: Denies Hearing Impairment: Denies Cancer: No Psychosocial: Yes Anxiety Integumentary: No Blood Disorders: Yes (POLYCYTHEMIA) Physical Exam Vital Signs Vital Signs - First Documented Capillary Refill : Less Than 3 Seconds Height, Weight, BMI Height: 5'8" Weight: 170lbs. oz. 77.841451sm; 27.00 BMI Method:Stated General Appearance: No Apparent Distress, WD/WN, Other (LETHARGIC, KEEPS EYES CLOSED) HEENT: PERRL/EOMI, TMs Normal, Normal ENT Inspection, Pharynx Normal, Moist Mucous Membranes, Other (NO NYSTAGMUS) Neck: Full Range of Motion, Normal Inspection, Non Tender, Supple; No Carotid Bruit, No JVD Respiratory: Normal Breath Sounds, No Accessory Muscle Use, No Respiratory Distress Cardiovascular: Regular Rate, Rhythm, No Edema, No JVD, No Murmur, Normal Peripheral Pulses Gastrointestinal: Normal Bowel Sounds, No Organomegaly, No Pulsatile Mass, Non Tender, Soft Extremity: Normal Capillary Refill, Normal Inspection, No Calf Tenderness, No Pedal Edema Neurologic/Psychiatric: Alert, Oriented x3, channel executive II-XII Norm as Tested, Other (LETHARGIC, WITH GLOBAL WEAKNESS--EQUAL BILATERALLY. MOVES ALL EXTREMITIES EQUALLY, BUT WITH MINIMAL EFFORT--NO FOCAL DEFICITS. ) Reflexes: 2+ Bicep (R), 2+ Bicep (L), 2+ Knee (R), 2+ Knee (L) Skin: Normal Color, Warm/Dry Progress/Results/Core Measures Suspected Sepsis SIRS Temperature: Pulse: 60 Respiratory Rate: 18 Laboratory Tests 11/08/20 15:35: White Blood Count 11.5H Blood Pressure 125 /74 Mean: 91 Laboratory Tests 11/08/20 15:35: Creatinine 1.09, INR Comment 1.0, Platelet Count 290, Total Bilirubin 0.6 Results/Orders Lab Results Laboratory Tests Test 11/08/20 15:35 11/08/20 16:05 11/08/20 17:51 Range/Units White Blood Count 11.5 H 4.3-11.0 10^3/uL Red Blood Count 5.68 H 4.30-5.52 10^6/uL Hemoglobin 17.8 H 13.3-17.7 g/dL Hematocrit 51 40-54 % Mean Corpuscular Volume 90 80-99 fL Mean Corpuscular Hemoglobin 31 25-34 pg Mean Corpuscular Hemoglobin Concent 35 32-36 g/dL Red Cell Distribution Width 12.8 10.0-14.5 % Platelet Count 290 130-400 10^3/uL Mean Platelet Volume 9.4 9.0-12.2 fL Immature Granulocyte % (Auto) 1 % Neutrophils (%) (Auto) 63 42-75 % Lymphocytes (%) (Auto) 27 12-44 % Monocytes (%) (Auto) 8 0-12 % Eosinophils (%) (Auto) 1 0-10 % Basophils (%) (Auto) 1 0-10 % Neutrophils # (Auto) 7.2 1.8-7.8 10^3/uL Lymphocytes # (Auto) 3.1 1.0-4.0 10^3/uL Monocytes # (Auto) 0.9 0.0-1.0 10^3/uL Eosinophils # (Auto) 0.2 0.0-0.3 10^3/uL Basophils # (Auto) 0.1 0.0-0.1 10^3/uL Immature Granulocyte # (Auto) 0.1 0.0-0.1 10^3/uL Prothrombin Time 13.2 12.2-14.7 SEC INR Comment 1.0 0.8-1.4 Activated Partial Thromboplast Time 23 L 24-35 SEC D-Dimer 0.30 0.00-0.49 UG/ML Sodium Level 139 135-145 MMOL/L Potassium Level 4.1 3.6-5.0 MMOL/L Chloride Level 107 98-107 MMOL/L Carbon Dioxide Level 23 21-32 MMOL/L Anion Gap 9 5-14 MMOL/L Blood Urea Nitrogen 13 7-18 MG/DL Creatinine 1.09 0.60-1.30 MG/DL Estimat Glomerular Filtration Rate 70 BUN/Creatinine Ratio 12 Glucose Level 121 H 70-105 MG/DL Calcium Level 9.4 8.5-10.1 MG/DL Corrected Calcium 9.1 8.5-10.1 MG/DL Magnesium Level 2.2 1.6-2.4 MG/DL Total Bilirubin 0.6 0.1-1.0 MG/DL Aspartate Amino Transf (AST/SGOT) 18 5-34 U/L Alanine Aminotransferase (ALT/SGPT) 24 0-55 U/L Alkaline Phosphatase 128 40-136 U/L Total Creatine Kinase 105 30-200 U/L Creatine Kinase MB 1.1 <6.6 NG/ML Myoglobin 33.1 10.0-92.0 NG/ML Troponin I < 0.028 <0.028 NG/ML Total Protein 7.0 6.4-8.2 GM/DL Albumin 4.4 3.2-4.5 GM/DL TSH Freeman Testing 0.52 0.35-4.94 UIU/ML Serum Alcohol < 10 <10 MG/DL Glucometer 110 70-110 MG/DL Urine Color YELLOW Urine Clarity CLEAR Urine pH 6.5 5-9 Urine Specific Hixson 1.015 L 1.016-1.022 Urine Protein NEGATIVE NEGATIVE Urine Glucose (UA) NEGATIVE NEGATIVE Urine Ketones NEGATIVE NEGATIVE Urine Nitrite NEGATIVE NEGATIVE Urine Bilirubin NEGATIVE NEGATIVE Urine Urobilinogen 0.2 < = 1.0 MG/DL Urine Leukocyte Esterase NEGATIVE NEGATIVE Urine RBC (Auto) NEGATIVE NEGATIVE Urine RBC 0-2 /HPF Urine WBC 0-2 /HPF Urine Squamous Epithelial Cells NONE /HPF Urine Renal Epithelial Cells NONE /HPF Urine Crystals NONE /LPF Urine Bacteria NEGATIVE /HPF Urine Casts NONE /LPF Urine Mucus NEGATIVE /LPF Urine Culture Indicated NO Urine Opiates Screen NEGATIVE NEGATIVE Urine Oxycodone Screen NEGATIVE NEGATIVE Urine Methadone Screen NEGATIVE NEGATIVE Urine Propoxyphene Screen NEGATIVE NEGATIVE Urine Barbiturates Screen NEGATIVE NEGATIVE Ur Tricyclic Antidepressants Screen NEGATIVE NEGATIVE Urine Phencyclidine Screen NEGATIVE NEGATIVE Urine Amphetamines Screen NEGATIVE NEGATIVE Urine Methamphetamines Screen NEGATIVE NEGATIVE Urine Benzodiazepines Screen POSITIVE H NEGATIVE Urine Cocaine Screen NEGATIVE NEGATIVE Urine Cannabinoids Screen NEGATIVE NEGATIVE My Orders Orders - OFE QUACH DO Cbc With Automated Diff (11/08/20 15:42) Protime With Inr (11/08/20 15:42) Partial Thromboplastin Time (11/08/20 15:42) Comprehensive Metabolic Panel (11/08/20 15:42) Fibrin Degradation Products (11/08/20 15:42) Troponin I (11/08/20 15:42) Ua Culture If Indicated (11/08/20 15:42) Chest 1 View, Ap/Pa Only (11/08/20 15:42) Ekg Tracing (11/08/20 15:42) Accucheck Stat ONCE (11/08/20 15:42) Ed Iv/Invasive Line Start (11/08/20 15:42) Ed Iv/Invasive Line Start (11/08/20 15:42) Vital Signs Stroke Patient Q15M (11/08/20 15:42) Ct Head Wo-R/O Stroke (11/08/20 15:42) Intake & Output 06,14,22 (11/08/20 15:42) Monitor-Rhythm Ecg Trace Only (11/08/20 15:42) Dysphagia Screening Tool (11/08/20 15:42) Alcohol (11/08/20 15:42) Creatine Kinase (11/08/20 15:42) Creatine Kinase Mb (11/08/20 15:42) Drug Screen Stat (Urine) (11/08/20 15:42) Magnesium (11/08/20 15:42) Thyroid Analyzer (11/08/20 15:42) Myoglobin Serum (11/08/20 15:42) Ed Iv/Invasive Line Start (11/08/20 15:42) Lactated Ringers (Lr 1000 Ml Iv Solution (11/08/20 15:45) Ct Angio Head/Neck (11/08/20 16:26) Fentanyl Inj (Sublimaze Injection) (11/08/20 16:27) Ed Iv/Invasive Line Start (11/08/20 16:37) Lactated Ringers (Lr 1000 Ml Iv Solution (11/08/20 16:45) Ondansetron Injection (Zofran Injectio (11/08/20 16:45) Iohexol Injection (Omnipaque 350 Mg/Ml 1 (11/08/20 16:45) Received Contrast (Hold Metformin- Contr (11/08/20 16:45) Ns (Ivpb) (Sodium Chloride 0.9% Ivpb Bag (11/08/20 16:45) Scopolamine Patch (Transderm-Scop Patch) (11/08/20 19:00) Medications Given in ED Current Medications Medications Dose Ordered Sig/Maureen Route Start Time Stop Time Status Last Admin Dose Admin Scopolamine 1.5 mg ONCE ONCE TD 11/08/20 19:00 11/08/20 18:59 DC 11/08/20 18:58 1.5 MG Vital Signs/I&O 11/08/20 11/08/20 11/08/20 15:39 15:39 18:56 Temp 35.9 35.9 36.0 Pulse 60 60 61 Resp 18 18 16 B/P (MAP) 125/74 125/74 (91) 115/70 Pulse Ox 97 97 99 O2 Delivery Room Air Room Air Room Air 11/09/20 00:00 Intake Total 2300 ml Balance 2300 ml Capillary Refill : Less Than 3 Seconds Blood Pressure Mean: 91 Point of Care Testing Finger Stick Blood Glucose: 110 Blood Glucose Action Taken: Provider notified. Progress Note : Progress Note GIVEN IV FLUIDS AND PAIN MEDICATION FOR HEADACHE, WITH IMPROVEMENT IN SYMPTOMS UNEVENTFUL ER STAY PT WITH SIGNIFICANT IMPROVEMENT AT DISMISSAL, STATES HE FEELS BACK TO NORMAL ECG Initial ECG Impression Date: Nov 08, 2020 Initial ECG Impression Time: 15:54 Initial ECG Rate: 56 Initial ECG Rhythm: Normal Sinus Diagnostic Imaging Comments CXR--NO ACUTE PROCESS, PER RADIOLOGOIST REPORT AT 1609 CT HEAD--NO ACUTE PROCESS, PER RADIOLOGIST REPORT AT 1609 CT ANGIOGRAM HEAD/NECK--PER RADIOLOGIST REPORT AT 1825 IMPRESSION: CTA neck demonstrates patency of the carotid and vertebral territories with no significant stenotic lesion. CTA head demonstrates no major vessel stenosis or occlusion or aneurysmal disease. There is patency of the dural venous sinuses. Reviewed: Reviewed by Me Departure Communication (Admissions) 1828--SPOKE WITH DR. BECKETT, SHE ADVISES TO START PT ON 1/2 MAXZIDE FOR POSSIBLE MENIERE'S AND SHE WILL SEE PT IN OFFICE THIS WEEK FOR FOLLOW UP Impression Primary Impression: Dizziness Additional Impressions: Headache Generalized weakness Disposition: 01 HOME, SELF-CARE Condition: Improved Departure-Patient Inst. Decision time for Depature: 18:40 Referrals: EUGENE BECKETT MD (PCP/Family) Primary Care Physician Patient Instructions: Dizziness, Adult ED, Headache, Adult ED, Vestibular Exercises, Weakness ED Add. Discharge Instructions: INCREASE YOUR FLUID INTAKE TYLENOL AND MOTRIN NEEDED FOR PAIN SLOW POSITION CHANGES FOLLOW UP WITH DR. BECKETT'S OFFICE--CALL IN THE MORNING TO SCHEDULE FOLLOW UP APPOINTMENT All discharge instructions reviewed with patient and/or family. Voiced understanding. Scripts Ondansetron (Ondansetron Odt) 4 Mg Tab.rapdis 4 MG PO Q4H for Nausea/Vomiting, #10 TAB Prov: OFE QUACH DO 11/08/20 Triamterene/Hydrochlorothiazid (Maxzide 37.5 mg-25 mg Tablet) 1 Each Tablet 0.5 EACH PO DAILY, #15 TAB Prov: OFE QUACH DO 11/08/20 Work/School Note: Work Release Form Date Seen in the Emergency Department: Nov 08, 2020 Return to Work: Nov 13, 2020 OFE QUAHC DO Nov 08, 2020 16:44
[2020-11-08] MEDS ORDERED: IOHEXOL 350 MG/ML 100 ML (OMNIPAQUE 350) VIAL IV ONE (16:45)
[2020-11-08] MEDS ORDERED: HOLD METFORMIN - RECEIVED CONTRAST 20 ML VIAL IV SCH (16:45)
[2020-11-08] MEDS ORDERED: NS 100 ML (IVPB) BAG IV ONE (16:45)
[2020-11-08] MEDS: ONDANSETRON 4 MG/2 ML (SDV) Z0FRAN IVP ONE (16:48)
--- NOTE | 2020-11-08 17:27 | Diagnostic Imaging Report ---
INDICATION: Patient found down, left head pain and eye pain. TECHNIQUE: Contiguous noncontrast images were obtained from the skull base through the vertex. After intravenous contrast administration, helical CT angiography of the neck was performed. Source data was reformatted into 3D MIP projections. Delayed post contrast acquisition was also obtained. Auto Exposure Controls were utilized during the CT exam to meet ALARA standards for radiation dose reduction. COMPARISON: There is no prior CTA for comparison. Comparison made to noncontrast CT of earlier today. CTA NECK FINDINGS: Visualized portions of the lung apices show diffuse emphysematous changes. There are extensive degenerative findings throughout the cervical spine. The aortic arch and great vessel origins are patent and without stenosis. The common carotid arteries, carotid bifurcations, internal carotid arteries, and external carotids are patent in the neck and without stenosis or dissection. The vertebral arteries on both sides are patent and without stenosis or dissection. CTA HEAD FINDINGS: The distal vertebral arteries, basilar artery, and posterior cerebral arteries are patent. There are patent and well-developed posterior communicating arteries on both sides. The distal internal carotid arteries, anterior cerebral arteries, and middle cerebral arteries and their branches are patent. There is no major vessel occlusion or aneurysmal disease. The dural venous sinuses are patent. IMPRESSION: CTA neck demonstrates patency of the carotid and vertebral territories with no significant stenotic lesion. CTA head demonstrates no major vessel stenosis or occlusion or aneurysmal disease. There is patency of the dural venous sinuses. Dictated by: Dictated on workstation # [id number]
[2020-11-08 17:59] LABS: BILIRUBIN,URINE NEGATIVE (NEGATIVE); CLARITY,URINE CLEAR; COLOR,URINE YELLOW; GLUCOSE, URINE (UA) NEGATIVE (NEGATIVE); KETONES,URINE NEGATIVE (NEGATIVE); LEUKOCYTE ESTERASE ,URINE NEGATIVE (NEGATIVE); NITRITE,URINE NEGATIVE (NEGATIVE); PH,URINE 6.5 (5-9); PROTEIN,URINE NEGATIVE (NEGATIVE)
[2020-11-08 18:06] LABS: BACTERIA,URINE NEGATIVE /HPF; RBC,URINE 0-2 /HPF; WBC,URINE 0-2 /HPF
[2020-11-08 18:11] LABS: AMPHETAMINE SCREEN, URINE NEGATIVE (NEGATIVE); BARBITURATE SCREEN URINE NEGATIVE (NEGATIVE); BENZODIAZEPINES SCREEN URINE POSITIVE (NEGATIVE); CANNABINOID SCREEN, URINE NEGATIVE (NEGATIVE); COCAINE SCREEN URINE NEGATIVE (NEGATIVE); METHADONE STAT NEGATIVE (NEGATIVE); METHAMPHETAMINE SCREEN URINE S NEGATIVE (NEGATIVE); OPIATE SCREEN URINE NEGATIVE (NEGATIVE); OXYCODONE STAT NEGATIVE (NEGATIVE); PROPOXYPHENE STAT NEGATIVE (NEGATIVE); TRICYCLIC ANTIDEPRESSANTS SCRE NEGATIVE (NEGATIVE)
[2020-11-08] MEDS ORDERED: TRIA1TAB2 PO (18:45)
[2020-11-08] MEDS ORDERED: ONDA4TAB11 PO (18:45)
[2020-11-08 18:56] VITALS: BP 115/70
[2020-11-08] MEDS: SCOPOLAMINE 1.5 MG (TRANSDERM-SCOP) PATCH TD ONE (18:58)
== END 2020-11-08 18:59 | disposition home or self-care (01) ==
LOC: EDUNIT# 15:31 → ER 15:37
DX: R42 Dizziness and giddiness (principal); R51.9 Headache, unspecified; R53.1 Weakness; F41.9 Anxiety disorder, unspecified; E11.9 Type 2 diabetes mellitus without complications; G40.909 Epilepsy, unspecified, not intractable, without status epilepticus; F17.210 Nicotine dependence, cigarettes, uncomplicated; Z79.899 Other long term (current) drug therapy
CPT/HCPCS: 70450; 70496; 70498; 71045; 80053; 80306; 81000; 82550; 82553; 82947; 83735; 83874; 84443; 84484; 85025; 85379; 85610; 85730; 93005; 93041; 99284; G0480; 36415; 80320

== ENCOUNTER 2021-01-12 09:15 | Outpatient (CLI) | payer SELFPAY ==
[~2021-01-12] VITALS: Ht 172.7 cm; Wt 79.4 kg
[~2021-01-12 09:15] MED LIST changes: +TRIA1TAB2 PO
[2021-01-12 09:20] VITALS: BP 135/74
[2021-01-12] MEDS ORDERED: ACETAMINOPHEN 500 MG TAB (TYLENOL) PO PRN (09:30)
[2021-01-12] MEDS ORDERED: ONDANSETRON 4 MG/2 ML (SDV) Z0FRAN IV PRN (09:30)
[2021-01-12] MEDS ORDERED: CASIRIVIMAB/IMDEVIMAB 1,200 MG in NS (IVPB) 250 ML IV ONE (09:30)
[2021-01-12] MEDS ORDERED: diphenhydrAMINE 50 MG/ML INJ (BENADRYL) IV PRN (09:30)
[2021-01-12] MEDS ORDERED: EPINEPHrine INJECTION 1 MG/ML AMP IM PRN (09:30)
[2021-01-12 10:50] VITALS: BP 109/63
== END 2021-01-12 10:54 | disposition home or self-care (01) ==
LOC: INFUSION 09:15
PROVIDERS: ATTEND Nurse Practitioner Family
DX: U07.1 COVID-19 (principal)